=== PATIENT | male | born 1995 ===

== ENCOUNTER 2019-02-15 08:40 | Emergency (ER) | payer OTHER ==
[2019-02-15 08:51] VITALS: BP 119/75
--- NOTE | 2019-02-15 09:00 | UC ---
General HPI - HPI Summary HPI Summary: PMH ALL age 3 yrs old, rx'd chemotherapy. Yearly f/u's with [facility], most recently Dr. Martin Feb 2018. Echocardiogram 01/29/19 Dr. Mcguire EF approx 50-55% . Presents today c/o R itchy red, eye with yellowish "gunk." No fever / chills. Has had a cold over this past week, with some sinus and ear congestion. Last week L ear "popped" and was painful. Seen by Dr. Martin, told that there was some dried blood o/w ok. No vision c/o's or changes. No sob / cp. No GI issues. No rash other than eye c/o. No h/a reported. Has been rubbing his eye a lot. - History of Current Complaint Chief Complaint: UCEye Stated Complaint: RIGHT EYE COMPLAINT Time Seen by Provider: 02/15/19 08:51 Hx Obtained From: Patient Pain Intensity: 0 - Allergy/Home Medications Allergies/Adverse Reactions: Allergies Allergy/AdvReac Type Severity Reaction Status Date / Time No Known Allergies Allergy Verified 02/15/19 08:51 PMH/Surg Hx/FS Hx/Imm Hx Previously Healthy: Yes - childhood all see hpi - Surgical History Surgical History: None - Family History Known Family History: Positive: Other - no pcn allergy, Non-Contributory - Social History Alcohol Use: Rare Substance Use Type: None Smoking Status (MU): Never Smoked Tobacco Review of Systems All Other Systems Reviewed And Are Negative: Yes Constitutional: Positive: Negative Skin: Positive: Negative Eyes: Positive: Other - see hpi ENT: Positive: Other - see hpi Respiratory: Positive: Negative Cardiovascular: Positive: Negative Gastrointestinal: Positive: Negative Genitourinary: Positive: Negative Motor: Positive: Negative Neurovascular: Positive: Negative Musculoskeletal: Positive: Negative Neurological: Positive: Negative Psychological: Positive: Negative Is Patient Immunocompromised?: No Physical Exam Triage Information Reviewed: Yes Appearance: Well-Appearing, Well-Nourished Vital Signs: Initial Vital Signs Temp 7.9 F 02/15/19 08:47 Pulse 69 02/15/19 08:47 Resp 16 02/15/19 08:47 BP 119/75 02/15/19 08:47 Pulse Ox 100 02/15/19 08:47 Vital Signs Reviewed: Yes Eye Exam: Other Eyes: Positive: Other: - L eye a little watery, but ok. R eye + red conjunctiva and sclera red too. + yellow white drainage noted medial epicanthus. Inf lid + red and swollen. Not fluctuant. ENT Exam: Other ENT: Positive: Nasal congestion, Other - R TM intact. Nad. L TM intact. +sup ant quadrant red with dried red blood. Not currently retracted. Appears c/w prior barotrauma as noted in HPI Neck exam: Normal Neck: Positive: Supple, Nontender Respiratory Exam: Normal Respiratory: Positive: Chest non-tender, Lungs clear, Normal breath sounds, No respiratory distress, No accessory muscle use Cardiovascular Exam: Normal Cardiovascular: Positive: RRR, No Murmur, Pulses Normal, Brisk Capillary Refill Abdominal Exam: Normal Abdomen Description: Positive: Nontender Musculoskeletal Exam: Normal - moves x 4 ext's, gait steady Neurological Exam: Normal - grossly nonfocal Psychological Exam: Normal - conversing easily and appropriately. nad. Skin Exam: Normal - see "eye" o/w no issues. no visible or reported rash. Course/Dx - Course Course Of Treatment: Reviewed coa / tx plan. Will rx with gtt, but also + augmentin. Red inferior lid, likely related to rubbing the eye, and inflammation. However, will rx with augmentin in the event early periorbital cellulitis is at play. D/w pt. Aware of the need for recheck if any worse or new issues. Questions as posed answered to the best of my ability. - Diagnoses Provider Diagnosis: Conjunctivitis Discharge ED - Sign-Out/Discharge Documenting (check all that apply): Patient Departure All imaging exams completed and their final reports reviewed: No Studies - Discharge Plan Condition: Stable Disposition: HOME Prescriptions: Amoxicillin/Clavulanate TAB* [Augmentin TAB 875*] 875 mg PO BID #20 tab Ciprofloxacin 0.3% OPTH.ALEJANDRA* [Cipro 0.3% Opth*] 2 drop RIGHT EYE TID 5 Days #1 btl Patient Education Materials: Conjunctivitis (ED) Referrals: Stevan Martin MD [Medical Doctor] - [facility] [Primary Care Provider] - Additional Instructions: Follow up with your primary care physician, per routine. Seek immediate medical attention for any worse or new problems. Hydrate. Eat yogurt daily, raza while taking antibiotic. - Billing Disposition and Condition Condition: STABLE Disposition: Home
== END 2019-02-15 09:24 | disposition home or self-care (01) ==
LOC: UCEAST 08:40
DX: H10.9 Unspecified conjunctivitis (principal); R09.81 Nasal congestion
CPT/HCPCS: 99212; G0463